=== PATIENT | female | born 1960 | race Caucasian/White ===

== ENCOUNTER 2017-09-21 14:57 | Emergency (ER) | payer OTHER, SELFPAY ==
[2017-09-21 15:24] VITALS: BP 110/80; PULSE 126; RESP 20; TEMP 38.4; O2SAT 94; BMI 25.0
--- NOTE | 2017-09-21 15:25 | HMH.EDUTC ---
[facility] [place] Clinical Impression: Flu-like symptoms Disposition: Home, Self-Care Condition on Discharge: Good Instructions: DI for Influenza -- Adult Additional Instructions: Rest, fluids. Motrin/Tylenol PRN. Prescriptions: Brompheniramine/Pseudoephed/Dm [Bromfed DM Cough Syrup 5mL] 5 - 10 ml PO Q4HP PRN 10 Days #240 syrup PRN Reason: Cough methylPREDNISolone [Medrol] 4 mg PO DAILY 6 Days #21 tab.ds.pk Oseltamivir Phosphate [Tamiflu 75mg Capsule] 75 mg PO BID 5 Days #10 cap Referrals: Omkar Acosta MD [Primary Care Provider] - Time of Disposition: 16:08 Medical Decision Making - Medical Records Medical records reviewed: Yes: I reviewed the patient's medical records. Vital Signs: 09/21/17 15:24 Temperature 101.1 F H Temperature Source Temporal Artery Scan Pulse Rate [Right Brachial] 126 H Respiratory Rate 20 Blood Pressure [Right Arm] 110/80 Blood Pressure Mean [Right Arm] 90 Blood Pressure Source [Right Arm] Automatic Cuff Blood Pressure Position [Right Arm] Sitting 02 Sat by Pulse Oximetry 94 L Oxygen Delivery Method Room Air - Lab Data Lab results reviewed: Yes: I reviewed the patient's lab results. Lab Results 09/21/17 15:22: Influenza Type A Ag Negative, Influenza Type B Ag Negative 09/21/17 15:31: Strep Scn Rapid Clinic Negative Orders (Tests/Meds): ORDERS Category Date Time Status Strep Screen Confirmation Stat Micro 09/21/17 15:31 Received - King Inquiry Pt receiving controlled substance: No [facility] [place] H[place] - General Stated complaint: achey,fever,vomiting Time Seen by Provider: 09/21/17 15:25 HEENT Symptoms (Recalled from RN notes): Yes Resp Symptoms (Recalled from RN notes): Yes Skin Symptoms (Recalled from RN notes): No GI/ Symptoms (Recalled from RN notes): Yes MS Symptoms (Recalled from RN notes): Yes Card Symptoms (Recalled from RN notes): No Other (Recalled from RN notes): No - History of Present Illness Provider Complaint: 2.5 week history of cough, congestion. Now has fever 101.5 since this am, body aches, chills. Vomited this am. Throat is sore. Non productive cough. No diarrhea. Onset (ago): day(s) (1) Location: head Relieving factors: none Exacerbating factors: none Associated symptoms: cough, fever/chills, malaise, nausea/vomiting Treatments prior to arrival: none - Related Data Previous Rx's Medication Instructions Recorded Brompheniramine/Pseudoephed/Dm 5 - 10 ml PO Q4HP PRN 10 Days #240 09/21/17 [Bromfed DM Cough Syrup 5mL] syrup Oseltamivir Phosphate [Tamiflu 75 mg PO BID 5 Days #10 cap 09/21/17 75mg Capsule] methylPREDNISolone [Medrol] 4 mg PO DAILY 6 Days #21 tab.ds.pk 09/21/17 Allergies Allergy/AdvReac Type Severity Reaction Status Date / Time Penicillin Allergy Unknown Uncoded 07/30/17 14:41 [facility] History I have reviewed the patient's past medical history: Yes ROS Obtained: Yes All systems reviewed & no additional complaints - Constitutional Constitutional: Reports body ache, Reports chills, Reports fever(s), Reports weakness - ENT Ears, Nose, Mouth, and Throat: Denies otalgia, Denies nasal congestion, Denies nasal discharge, Reports sore throat - Respiratory Respiratory: Yes cough - Gastrointestinal Gastrointestingal: Reports: vomiting. Denies: diarrhea - Genitourinary Female Genitourinary: Denies difficulty voiding, Denies dysuria, Denies urinary frequency - Musculoskeletal Musculoskeletal: Reports muscle aches - Integumentary/Breasts Skin/Breast: Denies rash Physical Exam - General General appearance: alert, in no apparent distress - Head Head exam: atraumatic, normocephalic, normal inspection - Eye Eye exam: Present: normal appearance, PERRL, EOMI - ENT ENT exam: Present: normal exam, normal oropharynx, mucous membranes moist, TM's normal bilaterally, normal external ear exam - Neck Neck exam: Present: normal inspection, full ROM, trachea midline. Absent: meningismus, lym
--- NOTE | 2017-09-21 15:28 | ED_ITS ---
[facility] [place] Disposition Clinical Impression: Flu-like symptoms Disposition: Home, Self-Care Condition on Discharge: Good Instructions: DI for Influenza -- Adult Additional Instructions: Rest, fluids. Motrin/Tylenol PRN. Prescriptions: Brompheniramine/Pseudoephed/Dm [Bromfed DM Cough Syrup 5mL] 5 - 10 ml PO Q4HP PRN 10 Days #240 syrup PRN Reason: Cough methylPREDNISolone [Medrol] 4 mg PO DAILY 6 Days #21 tab.ds.pk Oseltamivir Phosphate [Tamiflu 75mg Capsule] 75 mg PO BID 5 Days #10 cap Referrals: Omkar Acosta MD [Primary Care Provider] - Time of Disposition: 16:08 Medical Decision Making - Medical Records Medical records reviewed: Yes: I reviewed the patient's medical records. Vital Signs: 09/21/17 15:24 Temperature 101.1 F H Temperature Source Temporal Artery Scan Pulse Rate [Right Brachial] 126 H Respiratory Rate 20 Blood Pressure [Right Arm] 110/80 Blood Pressure Mean [Right Arm] 90 Blood Pressure Source [Right Arm] Automatic Cuff Blood Pressure Position [Right Arm] Sitting 02 Sat by Pulse Oximetry 94 L Oxygen Delivery Method Room Air - Lab Data Lab results reviewed: Yes: I reviewed the patient's lab results. Lab Results 09/21/17 15:22: Influenza Type A Ag Negative, Influenza Type B Ag Negative 09/21/17 15:31: Strep Scn Rapid Clinic Negative Orders (Tests/Meds): ORDERS Category Date Time Status Strep Screen Confirmation Stat Micro 09/21/17 15:31 Received - King Inquiry Pt receiving controlled substance: No [facility] [place] HPI - General Stated complaint: achey,fever,vomiting Time Seen by Provider: 09/21/17 15:25 HEENT Symptoms (Recalled from RN notes): Yes Resp Symptoms (Recalled from RN notes): Yes Skin Symptoms (Recalled from RN notes): No GI/ Symptoms (Recalled from RN notes): Yes MS Symptoms (Recalled from RN notes): Yes Card Symptoms (Recalled from RN notes): No Other (Recalled from RN notes): No - History of Present Illness Provider Complaint: 2.5 week history of cough, congestion. Now has fever 101.5 since this am, body aches, chills. Vomited this am. Throat is sore. Non productive cough. No diarrhea. Onset (ago): day(s) (1) Location: head Relieving factors: none Exacerbating factors: none Associated symptoms: cough, fever/chills, malaise, nausea/vomiting Treatments prior to arrival: none - Related Data Previous Rx's Medication Instructions Recorded Brompheniramine/Pseudoephed/Dm 5 - 10 ml PO Q4HP PRN 10 Days #240 09/21/17 [Bromfed DM Cough Syrup 5mL] syrup Oseltamivir Phosphate [Tamiflu 75 mg PO BID 5 Days #10 cap 09/21/17 75mg Capsule] methylPREDNISolone [Medrol] 4 mg PO DAILY 6 Days #21 tab.ds.pk 09/21/17 Allergies Allergy/AdvReac Type Severity Reaction Status Date / Time Penicillin Allergy Unknown Uncoded 07/30/17 14:41 [facility] History I have reviewed the patient's past medical history: Yes ROS Obtained: Yes All systems reviewed & no additional complaints - Constitutional Constitutional: Reports body ache, Reports chills, Reports fever(s), Reports weakness - ENT Ears, Nose, Mouth, and Throat: Denies otalgia, Denies nasal congestion, Denies nasal discharge, Reports sore throat - Respiratory Respiratory: Yes cough - Gastrointestinal Gastrointestingal: Reports: vomiting. Denies: diarr
[2017-09-21 16:00] LABS: UTC Strep Screen (Rapid) Negative (Negative)
[2017-09-21 16:01] LABS: UTC Influenza A Antigen Negative (Negative); UTC Influenza B Antigen Negative (Negative)
[2017-09-21 16:13] VITALS: BP 110/80; PULSE 126; RESP 20; TEMP 38.4; O2SAT 94
== END 2017-09-21 16:14 | disposition home or self-care (01) ==
PROVIDERS: Emergency Provider Physician Assistant; Family Provider Family Medicine; PCP Family Medicine
DX: J10.1 Influenza due to other identified influenza virus with other respiratory manifestations (principal)
CPT/HCPCS: 87804; 87880; 99202

== ENCOUNTER → 2017-09-24 14:13 | Outpatient (CLI) | payer OTHER, SELFPAY ==
--- NOTE | 2017-09-24 14:16 | XR_ITS ---
XR chest 2V HISTORY: ITS.REASON: BRONCHITIS ORDERING PHYSICIAN: Maite Hill PATIENT AGE: 57 years COMPARISON: None available FINDINGS: The cardiomediastinal silhouette and pulmonary vascularity are within normal limits. Consolidation is present in the superior segment of the right lower lobe medially consistent with pneumonia. There is some mild prominence of the right hilum which may be related to reactive lymph nodes. Follow-up suggested to confirm stability. 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 No acute bony abnormalities. 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
== END ==
PROVIDERS: PCP Family Medicine; Visit Provider Nurse Practitioner Family
DX: J40 Bronchitis, not specified as acute or chronic (principal)
CPT/HCPCS: 71046

== ENCOUNTER → 2017-10-04 13:59 | Outpatient (CLI) | payer OTHER, SELFPAY ==
--- NOTE | 2017-10-04 14:03 | XR_ITS ---
XR chest 2V HISTORY: ITS.REASON: INFLUENZA,PNEUMONIA RLL ORDERING PHYSICIAN: VINCENT Paredes PATIENT AGE: 57 years COMPARISON: 09/24/2017 FINDINGS: The cardiomediastinal silhouette and pulmonary vascularity are within normal limits. Right-sided pneumonia has shown some improvement. There is some mild residual pneumonia in the right perihilar region. The left lung is clear. There is evidence of old granulomatous disease. IMPRESSION: Persistent but improving right lower lobe pneumonia
== END ==
PROVIDERS: PCP Family Medicine; Visit Provider Physician Assistant
DX: J11.1 Influenza due to unidentified influenza virus with other respiratory manifestations (principal); J18.1 Lobar pneumonia, unspecified organism
CPT/HCPCS: 71046

== ENCOUNTER 2020-01-31 17:21 | Emergency (ER) | payer OTHER, SELFPAY ==
--- NOTE | 2020-01-31 17:46 | HMH.EDUTC ---
[facility] [place] Disposition Clinical Impression: Right lower quadrant abdominal pain, History of IBS Disposition: Home, Self-Care Condition on Discharge: Good Instructions: Acute Abdominal Pain, DI for Irritable Bowel Syndrome Additional Instructions: Drink plenty of fluids. Take tylenol or ibuprofen for pain or fever. Take the medications as directed. If your symptoms get any worse, please return to the ER jayy. Follow up with your regular doctor. GO TO THE ER FOR ANY WORSENING SYMPTOMS Prescriptions: Dicyclomine HCl [Bentyl 10mg capsule] 10 mg PO TIDP PRN #30 cap PRN Reason: Moderate Pain Transmission Status: Received by [facility] Ciprofloxacin HCl [Cipro 250mg Tab] 250 mg PO BID 7 Days #14 tab Transmission Status: Received by [facility] Referrals: Omkar Acosta MD [Primary Care Provider] - Time of Disposition: 18:11 Medical Decision Making - Medical Records Medical records reviewed: No: I reviewed the patient's medical records. - King Inquiry Pt receiving controlled substance: No Vital Signs: 01/31/20 17:51 01/31/20 18:02 Temperature 98.6 F 98.6 F Temperature Source Oral Pulse Rate 108 H Pulse Rate [Right Brachial] 108 H Respiratory Rate 20 20 Blood Pressure 142/98 H Blood Pressure [Right Arm] 142/98 H Blood Pressure Mean [Right Arm] 112 Blood Pressure Source [Right Arm] Automatic Cuff Blood Pressure Position [Right Arm] Sitting 02 Sat by Pulse Oximetry 98 Oxygen Delivery Method Room Air - Lab Data Lab results reviewed: Yes: I reviewed the patient's lab results. Lab Results 01/31/20 18:00: Urine Color Yellow, Urine Appearance Clear, Urine pH 7.0, Ur Specific [place] 1.010, Urine Protein Negative, Urine Glucose (UA) Negative, Urine Ketones Negative, Urine Blood Negative, Urine Nitrate Negative, Urine Bilirubin Negative, Urine Urobilinogen 0.2, Ur Leukocyte Esterase Negative Medical Decision Narrative: she refused to go to the er for further evaluation of her abdominal pain. [facility] [place] HPI - General Stated complaint: Right side pain Time Seen by Provider: 01/31/20 17:47 - History of Present Illness Provider Complaint: She c/o right lower quadrant pain that started yesterday. She does not have an appendix (removed in 1996) or a right ovary (removed also). She has had normal bowel movements yesterday and today. She denies any blood in her stool. She does have a history of IBS, but she has not had these kind of symptoms in over 10 years. - Related Data Previous Rx's Medication Instructions Recorded Ciprofloxacin HCl [Cipro 250mg 250 mg PO BID 7 Days #14 tab 01/31/20 Tab] Dicyclomine HCl [Bentyl 10mg 10 mg PO TIDP PRN #30 cap 01/31/20 capsule] Allergies Allergy/AdvReac Type Severity Reaction Status Date / Time Penicillins Allergy Verified 01/31/20 17:56 [facility] History - Hepatitis A Screen Attestation statement:: This patient has been screened for Hepatitis A risk factors. I have reviewed the patient's past medical history: Yes Medical History: Denies:: Cancer, Diabetes Mellitus Type 1, Diabetes Mellitus Type 2, MRSA Laterality Cases: Bilateral: Tonsillectomy Amputation: No Fractures: No - Social History Smoking Status: Current every day smoker Tobacco Type: cigarettes Alcohol Intake: never ROS Obtained: Yes All systems reviewed & no additional complaints - Constitutional Constitutional: Denies chills, Denies fever(s) - Gastrointestinal Gastrointestingal: Reports: as per HPI - Genitourinary Female Genitourinary: Reports dysuria - Musculoskeletal Musculoskeletal: Denies back pain - Integumentary/Breasts Skin/Breast: Denies redness, Denies new lesions, Denies rash, Denies wounds Physical Exam - General General appearance: alert, in no apparent distress - Head Head exam: atraumatic, normocephalic, normal inspection - Eye Eye exam: Present: normal appearance, PERRL, EOMI -
[2020-01-31 17:51] VITALS: BP 142/98; PULSE 108; RESP 20; TEMP 37; O2SAT 98; BMI 23.1
[2020-01-31 18:02] VITALS: BP 142/98; PULSE 108; RESP 20; TEMP 37; O2SAT 98
[2020-01-31 19:13] LABS: Apearance,Urine Clear (Clear); Bilirubin,Urine Negative (Negative); Blood, Urine Negative (Negative); Color,Urine Yellow (Yellow); Glucose,Urine (UA) Negative (Negative); Ketones,Urine Negative (Negative); Protein,Urine Negative (Negative); UTC Leukocyte Esterase,Urine Negative (Negative); UTC Nitrate,Urine Negative (Negative); Urobilinogen,Urine 0.2 EU/dl (0.2)
== END 2020-01-31 18:13 | disposition home or self-care (01) ==
PROVIDERS: Emergency Provider Nurse Practitioner Family; PCP Family Medicine
DX: R10.31 Right lower quadrant pain (principal); K58.9 Irritable bowel syndrome, unspecified; F17.210 Nicotine dependence, cigarettes, uncomplicated; Z88.0 Allergy status to penicillin; Z90.09 Acquired absence of other part of head and neck
CPT/HCPCS: 81003; 99201

== ENCOUNTER → 2020-02-19 08:40 | Outpatient (CLI) | payer OTHER, SELFPAY ==
--- NOTE | 2020-02-19 08:45 | CT_ITS ---
PROCEDURE: CT ABDOMEN PELVIS WO CON CLINICAL INDICATION: R LOWER QUAD ABD PAIN Right lower quadrant pain, history of colon cancer COMPARISON: No exams were available for comparison TECHNIQUE: Axial images obtained with sagittal and coronal reformats. All CT scans at the facility use one or more dose reduction, viz: automated exposure control, ma/kV adjustment per patient size (including targeted exams where dose is matched to indication, i.e. head), or iterative reconstruction technique. Patient refused IV contrast. Oral contrast was utilized. FINDINGS: LOWER THORAX: There is a moderate-sized hiatal hernia. Coronary artery calcifications are noted. There is a 4 mm noncalcified nodule in the lingula along with some mild atelectatic or fibrotic changes in the lingula and right middle lobe and right lower lobe. There is some minimal pleural calcification in the lower hemithorax on the left. ABDOMEN & PELVIS: There is a 12 mm hypodense lesion in the left hepatic lobe. The spleen, adrenal glands, pancreas, and kidneys have an unremarkable appearance. No renal or ureteral calculi. No hydronephrosis. No intestinal obstruction or free air. No evidence of appendicitis. There is colonic diverticulosis with no evidence of diverticulitis. There are post hysterectomy changes. No acute bony anomalies. IMPRESSION: 1. 12 mm hypodensity of the left lobe of the liver which may be due to a cyst and could be confirmed with ultrasound 2. Hiatal hernia. 3. Colonic diverticulosis without diverticulitis. 4. Minimal pleural calcification in the left lung base with bilateral lower lobe calcified nodules atelectatic changes and noncalcified 4 mm nodule in the lingula. Dictated by: Hakan Breen MD 02/20/2020 10:08 Electronically signed by Hakan Breen MD in [place] 02/20/2020 10:08
== END ==
PROVIDERS: PCP Family Medicine; Visit Provider Family Medicine
DX: R10.31 Right lower quadrant pain (principal)
CPT/HCPCS: 74176

== ENCOUNTER → 2020-03-07 07:42 | Outpatient (CLI) | payer OTHER, SELFPAY ==
--- NOTE | 2020-03-07 | US_ITS ---
PROCEDURE: US ABDOMEN LIMITED CLINICAL INDICATION: CYSTIC DISEASE OF LIVER, 12MM CYST OF LIVER COMPARISON: CT ABDOMEN PELVIS WO CON from 02/19/2020 FINDINGS: PANCREAS: Unremarkable. No obvious mass or abnormal fluid collection. No ductal dilatation LIVER: There is a 12 mm cyst in the left hepatic lobe RIGHT KIDNEY: Unremarkable. Normal size and echogenicity. No hydronephrosis GALLBLADDER: Small gallbladder polyp is noted posteriorly at 3 mm. No shadowing. No shadowing mobile stones evident. Common bile duct is normal at 4 mm. No gallbladder wall thickening or pericholecystic fluid. IMPRESSION: 12 mm cyst left hepatic lobe Small gallbladder polyp Dictated by: Hakan Breen MD 03/08/2020 07:50 Electronically signed by Hakan Breen MD in [place] 03/08/2020 07:50
== END ==
PROVIDERS: PCP Family Medicine; Visit Provider Family Medicine
DX: Q44.6 Cystic disease of liver (principal)
CPT/HCPCS: 76705

== ENCOUNTER → 2021-05-27 07:57 | Outpatient (CLI) | payer OTHER, SELFPAY ==
[2021-05-27 08:30] LABS: Chloride 106 mmol/L (98-107); Potassium 4.1 mmoL/L (3.5-5.1); Sodium 141 mmol/L (136-145)
[2021-05-27 08:33] LABS: Alanine Aminotransferase 14 U/L (12-78); Albumin Level 3.9 g/dl (3.5-5.0); Albumin/Globulin Ratio 1.3 (1.1-1.8); Alkaline Phosphatase 85 U/L (38-126); Anion Gap 12.1 mEq/L (5-15); Aspartate Amino Transferase 13 U/L (14-36); Bilirubin,Total 0.5 mg/dl (0.2-1.3); Blood Urea Nitrogen 8 mg/dl (7-17); Calcium 9.2 mg/dl (8.4-10.2); Carbon Dioxide 27 mmol/L (22.0-30.0); Chol/HDL Ratio 4.6 (1-3.5); Cholesterol 195 mg/dl (140-200); Estimated Glomerular Filt Rate 86 ml/min (>60); GFR (African American) 104 ML/MIN (>60); Glucose 115 mg/dl (74-100); HDL Cholesterol 42 mg/dl (40-60); Total Protein,Serum 6.9 g/dl (6.3-8.2); Triglycerides 83 mg/dl (30-150); VLDL Cholesterol 17 mg/dL (0-40)
[2021-05-27 08:44] LABS: Direct LDL Cholesterol 114.03 mg/dL (100-129)
[2021-05-27 09:04] LABS: Thyroid Stimulating Hormone 3.15 uIU/mL (0.465-4.68)
== END ==
PROVIDERS: Visit Provider Physician Assistant
DX: R30.0 Dysuria (principal); Z13.220 Encounter for screening for lipoid disorders; Z13.29 Encounter for screening for other suspected endocrine disorder
CPT/HCPCS: 36415; 80053; 80061; 84443

== ENCOUNTER → 2021-06-06 09:39 | Outpatient (CLI) | payer OTHER, SELFPAY ==
--- NOTE | 2021-06-06 09:43 | MM_ITS ---
PROCEDURE: MM DIG SCREENING MAMM BI W/CAD Digital Breast Tomosynthesis Included CLINICAL INDICATION: SCREENING There is no personal or family history of breast cancer. COMPARISON: MG DMSB DIG MAMM-SCREEN JP from 02/27/2013 MG DMSB DIG MAMM-SCREEN JP from 03/05/2014 MG DMSB DIG MAMM-SCREEN JP from 03/14/2015 TECHNIQUE: Standard CC and MLO images and 3D Tomosynthesis was obtained. R2 CAD reviewed. FINDINGS: Prominent diffuse fibroglandular densities are seen throughout both breast and the findings are bilateral and symmetrical. There is no new or suspicious lesion in either breast and no suspicious microcalcifications. IMPRESSION: Moderate diffuse breast density with no suspicious lesions seen BI-RAD Category: 1 Negative FOLLOW-UP: 1YR 1 Year Follow-up (A letter has been sent to the patient regarding results of the study.) Dictated by: Dr. Aubrey Yanez MD 06/09/2021 14:39 Dr. Aubrey Yanez MD in [place] 06/09/2021 14:39
== END ==
PROVIDERS: PCP Family Medicine; Visit Provider Physician Assistant
DX: Z12.31 Encounter for screening mammogram for malignant neoplasm of breast (principal)
CPT/HCPCS: 77063; 77067

== ENCOUNTER 2021-12-04 17:15 | Emergency (ER) | payer OTHER, SELFPAY ==
[2021-12-04 17:40] LABS: Apearance,Urine Clear (Clear); Color,Urine Dark Yellow (Yellow)
[2021-12-04 17:41] LABS: Bilirubin,Urine Negative (Negative); Blood, Urine Trace (Negative); Glucose,Urine (UA) Negative (Negative); Ketones,Urine Negative (Negative); Protein,Urine Negative (Negative); Specific Gravity, Urine 1.015 (1.005-1.030); UTC Leukocyte Esterase,Urine 2+ (Negative); UTC Nitrate,Urine Negative (Negative); Urobilinogen,Urine 0.2 EU/dl (0.2)
[2021-12-04 18:16] VITALS: BP 144/87; PULSE 94; RESP 18; TEMP 36.8; O2SAT 98; BMI 26.9
--- NOTE | 2021-12-04 18:52 | HMH.EDUTC ---
[facility] [place] Clinical Impression: Urinary tract infection Qualifiers: Urinary tract infection type: site unspecified Hematuria presence: with hematuria Qualified Code(s): N39.0 - Urinary tract infection, site not specified; R31.9 - Hematuria, unspecified Disposition: Home, Self-Care Condition on Discharge: Good Instructions: DI for Urinary Tract Infection (UTI), Nitrofurantoin Additional Instructions: *Increase fluids. Water not Soda or Tea *Start antibiotic immediately and be sure to take as ordered for the FULL length of time although you should start to see improvement over the next 48 hours *Be SURE to follow up anytime for new or worsening symptoms with your family doctor. AND in 48 hours for urine culture results with your family doctor, if you do not have a doctor then you may call back to the [facility] for urine culture results and further treatment. We do recommend that you choose and establish care with a Primary Care Physician. AND follow up with them in 10-14 days to repeat UA to ensure infection is resolved and blood no longer present *Be sure to let your PCP know that we sent urine cultures from the [facility] so they can follow up to ensure that you area the on the correct antibiotic Call your doctor office and make appointment for 48 hours (2 days from today) to follow up and get the results of your urine culture and further treatment Prescriptions: Nitrofurantoin Monohyd/M-Cryst [Macrobid 100 mg Capsule] 100 mg PO BID 7 Days #14 cap Transmission Status: Pending to [facility] Referrals: Omkar Acosta MD [Primary Care Provider] - As needed Time of Disposition: 19:02 Medical Decision Making - King Inquiry Pt receiving controlled substance: No King was queried for this patient: No Vital Signs: 12/04/21 18:16 Temperature 98.3 F Temperature Source Oral Pulse Rate [Right Radial] 94 H Respiratory Rate 18 Blood Pressure [Right Arm] 144/87 H Blood Pressure Mean [Right Arm] 106 Blood Pressure Source [Right Arm] Automatic Cuff Blood Pressure Position [Right Arm] Sitting 02 Sat by Pulse Oximetry 98 Oxygen Delivery Method Room Air - Lab Data Lab Results 12/04/21 17:33: Urine Color Dark yellow, Urine Appearance Clear, Urine pH 6.0, Ur Specific [place] 1.015, Urine Protein Negative, Urine Glucose (UA) Negative, Urine Ketones Negative, Urine Blood Trace, Urine Nitrate Negative, Urine Bilirubin Negative, Urine Urobilinogen 0.2, Ur Leukocyte Esterase 2+ A Orders (Tests/Meds): ORDERS Category Date Time Status Urine Culture Stat Micro 12/04/21 17:25 Received [facility] [place] HPI - General Stated complaint: painful urinating Time Seen by Provider: 12/04/21 18:52 Mode of Arrival: Ambulatory Source of Information: Patient Limitations: No Limitations Description of Symptoms (Recalled from Triage Doc. by RN): C/O frequent urination and bladder spasms since yesterday HEENT Symptoms (Recalled from RN notes): No Resp Symptoms (Recalled from RN notes): No Skin Symptoms (Recalled from RN notes): No MS Symptoms (Recalled from RN notes): No Functional Status (Recalled from RN notes): n/a - History of Present Illness Provider Complaint: Patient states that she feels like she may have a UTI States that she has been having feeling of urgency and frequency since yesterday and feels like she has burning and bladder spasms after urinating - Related Data Previous Rx's Medication Instructions Recorded Ciprofloxacin HCl [Cipro 250mg 250 mg PO BID 7 Days #14 tab 01/31/20 Tab] Dicyclomine HCl [Bentyl 10mg 10 mg PO TIDP PRN #30 cap 01/31/20 capsule] Nitrofurantoin Monohyd/M-Cryst 100 mg PO BID 7 Days #14 cap 12/04/21 [Macrobid 100 mg Capsule] Allergies Allergy/AdvReac Type Severity Reaction Status Date / Time Penicillins Allergy Verified 01/31/20 17:56 - Worker's Comp Is this a Worker's Comp case?: No [facility] History - Hepatitis A Screen Drug use history?: No High risk
[2021-12-04 19:10] VITALS: BP 144/89; PULSE 69; RESP 19; TEMP 37
== END 2021-12-04 19:10 | disposition home or self-care (01) ==
PROVIDERS: Emergency Provider Nurse Practitioner; PCP Family Medicine
DX: N30.00 Acute cystitis without hematuria (principal); F17.210 Nicotine dependence, cigarettes, uncomplicated
CPT/HCPCS: 81003; 87086; 87088; 87186; 99212; G0463

== ENCOUNTER 2022-03-31 09:47 | Emergency (ER) | payer OTHER, SELFPAY ==
[2022-03-31 10:25] VITALS: BP 129/82; PULSE 94; RESP 19; TEMP 37.1; O2SAT 97; BMI 25.8
--- NOTE | 2022-03-31 10:39 | HMH.EDUTC ---
[facility] [place] Clinical Impression: Bronchitis Disposition: Home, Self-Care Condition on Discharge: Good Instructions: DI for Acute Bronchitis Additional Instructions: Start antibiotic today. Be sure to complete entire prescription even if feeling better Tylenol and ibuprofen as needed for pain or fever Humidifier/vaporizer/hot steamy shower Follow-up with primary care tomorrow. Follow-up immediately in the ER of the [facility] for new or worsening symptoms or no noticeable improvement over the next 48-72 hours. Stop smoking Inhaler every 4-6 hours as needed. Should help open airways improved cough, wheezing, shortness of breath Imelda Mcfadden will not cause drowsiness to use at bedtime to help stop cough so that she can get some sleep Start steroids today. Helps with inflammation therefore coughing and wheezing. Follow directions on package. Prescriptions: Azithromycin [Zithromax 250mg tab] 250 mg PO DIRECTED #6 tab Transmission Status: Pending to [facility] Referrals: Omkar Acosta MD [Primary Care Provider] - Time of Disposition: 10:50 Medical Decision Making - King Inquiry Pt receiving controlled substance: No Vital Signs: 03/31/22 10:25 Temperature 98.8 F Temperature Source Oral Pulse Rate [Right Brachial] 94 H Respiratory Rate 19 Blood Pressure [Right Arm] 129/82 Blood Pressure Mean [Right Arm] 97 Blood Pressure Source [Right Arm] Automatic Cuff Blood Pressure Position [Right Arm] Sitting 02 Sat by Pulse Oximetry 97 Oxygen Delivery Method Room Air Orders (Tests/Meds): ORDERS Category Date Time Status Covid-19 Nasal PCR ([facility]) Routine Lab 03/31/22 10:30 Received [facility] [place] HPI - General Chief complaint: Urgent [facility] Stated complaint: fever, body aches Time Seen by Provider: 03/31/22 10:39 Mode of Arrival: Ambulatory Source of Information: Patient Limitations: No Limitations Description of Symptoms (Recalled from Triage Doc. by RN): PATIENT C/O FEVER AND BODY ACHES SINCE YESTERDAY HEENT Symptoms (Recalled from RN notes): No Resp Symptoms (Recalled from RN notes): No Skin Symptoms (Recalled from RN notes): No MS Symptoms (Recalled from RN notes): No Functional Status (Recalled from RN notes): WNL - History of Present Illness Provider Complaint: 61 yr old female presents for body aches,fever,nasal congestion and coughing up dark yellow sputum. - Related Data Previous Rx's Medication Instructions Recorded Ciprofloxacin HCl [Cipro 250mg 250 mg PO BID 7 Days #14 tab 01/31/20 Tab] Dicyclomine HCl [Bentyl 10mg 10 mg PO TIDP PRN #30 cap 01/31/20 capsule] Nitrofurantoin Monohyd/M-Cryst 100 mg PO BID 7 Days #14 cap 12/04/21 [Macrobid 100 mg Capsule] Azithromycin [Zithromax 250mg 250 mg PO DIRECTED #6 tab 03/31/22 tab] Allergies Allergy/AdvReac Type Severity Reaction Status Date / Time Penicillins Allergy Verified 01/31/20 17:56 Sulfa (Sulfonamide Allergy Verified 03/31/22 10:34 Antibiotics) - Worker's Comp Is this a Worker's Comp case?: No [facility] History - Hepatitis A Screen Attestation statement:: This patient has been screened for Hepatitis A risk factors. I have reviewed the patient's past medical history: Yes Medical History: Denies:: Cancer, Diabetes Mellitus Type 1, Diabetes Mellitus Type 2, MRSA Laterality Cases: Bilateral: Tonsillectomy Amputation: No Fractures: No - Social History Smoking Status: Current every day smoker Tobacco Type: cigarettes # Packs/Day (cigarettes): 1 Alcohol Intake: never Occupational Status: other ROS Obtained: Yes Systems reviewed as appropriate & no additional complaints - Constitutional Constitutional: Reports system reviewed and no additional complaints, except as docu, Reports body ache, Reports fever(s) - Eyes Eyes: Reports system reviewed and no additional complaints, except as docu, Denies change in vision - ENT Ears, Nose, Mouth, and Throat: Reports s
[2022-03-31 10:55] VITALS: BP 129/82; PULSE 94; RESP 19; TEMP 37.1; O2SAT 97
== END 2022-03-31 10:58 | disposition home or self-care (01) ==
PROVIDERS: Emergency Provider Nurse Practitioner Family; PCP Family Medicine
DX: U07.1 COVID-19 (principal); J40 Bronchitis, not specified as acute or chronic; R50.9 Fever, unspecified
CPT/HCPCS: 99212; C9803; G0463; U0003; U0005

== ENCOUNTER → 2023-04-12 10:13 | Outpatient (CLI) | payer MEDICAID, SELFPAY ==
--- NOTE | 2023-04-12 10:23 | MM_ITS ---
PROCEDURE INFORMATION: Exam: MG Bilateral Screening 3D Mammography Exam date and time: 04/12/2023 10:19 AM Age: 62 years old Clinical indication: Screening examination; No personal or family history of breast cancer TECHNIQUE: Imaging protocol: Bilateral Screening tomosynthesis and 2D mammography including computer-aided detection (CAD) when performed. COMPARISON: 1. MG MM DIG SCREENING MAMM BI W/CAD 06/06/2021 9:42 AM 2. MG DMSB DIG MAMM-SCREEN JP 03/14/2015 10:52 AM FINDINGS: MAMMOGRAPHY: Breast composition: There are scattered areas of fibroglandular density. Mass: None. Architectural distortion: None. Calcifications: No suspicious calcifications. Asymmetric density: None. Skin thickening: None. Axillary adenopathy: None. IMPRESSION: No mammographic evidence of malignancy. Annual screening is recommended unless otherwise clinically indicated. ASSESSMENT: BI-RADS Category 1: Negative
== END ==
PROVIDERS: PCP Pediatrics; Visit Provider Pediatrics
DX: Z12.31 Encounter for screening mammogram for malignant neoplasm of breast (principal)
CPT/HCPCS: 77063; 77067

== ENCOUNTER 2023-04-22 20:08 | Emergency (ER) | payer MEDICAID, SELFPAY ==
[2023-04-22 20:19] LABS: Microscopic, Urine URINE MICROSCOPIC (MICROSCOPIC)
[2023-04-22 20:28] LABS: Appearance,Urine CLEAR (Clear); Bilirubin,Urine Negative (Negative); Blood, Urine 1+ (Negative); Color,Urine YELLOW (Yellow); Glucose,Urine (UA) Negative (Negative); Ketones,Urine Negative (Negative); Leukocyte Esterase,Urine 2+ (Negative); Nitrate,Urine Negative (Negative); Protein,Urine Negative (Negative); Specific Gravity, Urine 1.015 (1.005-1.030); Urobilinogen,Urine 0.2 EU/dl (0.2)
[2023-04-22 20:42] VITALS: BP 145/93; PULSE 98; RESP 16; TEMP 36.6; O2SAT 98; BMI 24.7
[2023-04-22 21:06] LABS: RBC,Urine Occasional #/hpf (0-3)
--- NOTE | 2023-04-22 21:09 | HMH.EDGENADL ---
Discharge Plan Disposition Patient Disposition: Home, Self-Care Prescriptions Prescriptions: New nitrofurantoin macrocrystal 100 mg capsule 100 mg PO BID 5 Days Qty: 10 0RF Rx Instructions: must administer with a meal/food No Action ciprofloxacin HCl 250 MG tablet 250 mg PO BID 7 Days Qty: 14 0RF dicyclomine 10 MG capsule 10 mg PO TIDP PRN (Reason: Moderate Pain) Qty: 30 0RF nitrofurantoin monohyd/m-cryst 100 MG capsule 100 mg PO BID 7 Days Qty: 14 0RF azithromycin 250 MG tablet 250 mg PO DIRECTED Qty: 6 0RF Rx Instructions: Take two (2) tablets on day #1, then one (1) tablet day #2 thru #5 Referrals Follow up/Referrals: Lester Strauss [Primary Care Provider] - See instructions Activity Restrictions/Add. Instructions Additional Instructions/Restrictions: Call your family doctor to establish care for this visit to the emergency department and schedule follow-up within 48 hours to ensure improvement. If you have any worsening of your condition or any other concerning signs or symptoms, return to the emergency department or your primary care doctor for further evaluation. Clinical Impressions Clinical Impression: Urinary tract infection Instructions Patient Instructions: DI for Urinary Tract Infection (UTI), DI for Urinary Tract Infection in Children Discharge ED Provider: Raman Simmons General Adult HPI General Chief complaint: Urogenital-Female Stated complaint: suspected UTI Time Seen by Provider: 04/22/23 20:40 Mode of Arrival: Ambulatory Source of Information: Patient Limitations: No Limitations Description of Symptoms (Recalled from ER Triage Doc. by RN): pt states she woke up with morning with urinary frequency, occasional bladder spasms, and a burning pain in her pelvic area. pt states she thinks she has a UTI and she usually takes macrobid. History of Present Illness HPI narrative: 62-year-old female with history of numerous UTIs presenting with dysuria and frequency. Patient states this started today, tried to push fluids and stay hydrated, but symptoms persisted. Denies hematuria, but has dysuria, frequency, urgency, and intermittently having bladder spasms. Related Data Previous Rx's Medication Instructions Recorded ciprofloxacin HCl 250 mg tablet 250 mg PO BID 7 days #14 tabs 01/31/20 dicyclomine 10 mg capsule 10 mg PO TIDP PRN Moderate Pain 01/31/20 #30 caps nitrofurantoin 100 mg PO BID 7 days #14 caps 12/04/21 monohydrate/macrocrystals 100 mg capsule azithromycin 250 mg tablet 250 mg PO DIRECTED #6 tabs 03/31/22 nitrofurantoin macrocrystal 100 mg 100 mg PO BID 5 days #10 caps 04/22/23 capsule Allergies Allergy/AdvReac Type Severity Reaction Status Date / Time Penicillins Allergy Verified 04/22/23 20:56 Sulfa (Sulfonamide Allergy Verified 04/22/23 20:56 Antibiotics) [facility] Disclaimer: The information contained in this section may have been updated after the patient was seen, as this information can be updated by other users. Social History Smoking Status: Light tobacco smoker tobacco type: cigarettes packs per day: 1 alcohol intake: never current occupational status: other Travel in the last 8 weeks: None ROS Obtained: Yes All systems reviewed & no additional complaints except as documented Physical Exam General General appearance: alert, in no apparent distress and other ( ) Head Head exam: atraumatic and normocephalic Eye Eye exam: Present normal appearance, PERRL and EOMI ENT ENT exam: Present mucous membranes moist Neck Neck exam: Present normal inspection, full ROM and trachea midline Respiratory Respiratory exam: Absent respiratory distress, wheezes, stridor, accessory muscle use or prolonged expiratory phase Cardiovascular Cardiovascular exam: Present regular rate and normal rhythm Abdominal Exam Abdominal exam: Present soft; Absent distention, tenderness, guarding, rebound, rigidity or nor
[2023-04-22 21:22] VITALS: BP 145/93; PULSE 98; RESP 16; TEMP 36.6; O2SAT 97
--- NOTE | 2023-04-29 13:38 | PC.NURSE ---
reviewed pt positive urine culture. pt currently on appropriate medication. no action needed
== END 2023-04-22 21:25 | disposition home or self-care (01) ==
PROVIDERS: Emergency Provider Emergency Medicine; PCP Pediatrics
DX: N39.0 Urinary tract infection, site not specified (principal); F17.210 Nicotine dependence, cigarettes, uncomplicated
CPT/HCPCS: 81001; 87086; 87088; 87186; 99283

== ENCOUNTER 2023-09-04 11:00 | Outpatient (RCR) | payer MEDICAID, SELFPAY | END 2023-09-04 12:00 | disposition home or self-care (01) | LOC: PT 11:00 | PROVIDERS: PCP Pediatrics; Visit Provider Pediatrics | DX: M54.9 Dorsalgia, unspecified (principal) | CPT/HCPCS: 97010; 97014; 97110; 97140; 97163; 97164; G0283 ==

== ENCOUNTER 2024-04-20 08:25 | Outpatient (CLI) | payer MEDICAID, SELFPAY ==
--- NOTE | 2024-04-20 08:30 | MM_ITS ---
PROCEDURE INFORMATION: Exam: MG Bilateral Screening 3D Mammography Exam date and time: 04/20/2024 8:15 AM Age: 63 years old Clinical indication: Screening mammogram TECHNIQUE: Imaging protocol: Bilateral Screening tomosynthesis and 2D mammography including computer-aided detection (CAD) when performed. COMPARISON: 1. MG MM DIG SCREENING MAMM BI W/CAD 04/12/2023 10:19 AM 2. MG MM DIG SCREENING MAMM BI W/CAD 06/06/2021 9:42 AM 3. MG DMSB DIG MAMM-SCREEN JP 03/14/2015 10:52 AM 4. MG DMSB DIG MAMM-SCREEN JP 03/05/2014 10:02 AM FINDINGS: MAMMOGRAPHY: Breast composition: There are scattered areas of fibroglandular density. Mass: None. Architectural distortion: No new or suspicious architectural distortion. Calcifications: No new or suspicious calcifications are present Asymmetric density: No new or suspicious asymmetric density is present Skin thickening: None. Axillary adenopathy: None. IMPRESSION: No mammographic evidence of malignancy. Recommend annual screening mammography unless otherwise clinically indicated. ASSESSMENT: BI-RADS category 1: Negative.
== END 2024-04-20 23:59 | disposition home or self-care (01) ==
LOC: RAD 08:26
PROVIDERS: PCP Pediatrics; Visit Provider Pediatrics
DX: Z12.31 Encounter for screening mammogram for malignant neoplasm of breast (principal)
CPT/HCPCS: 77063; 77067

== ENCOUNTER 2024-06-07 12:01 | Emergency (ER) | payer MEDICAID, SELFPAY ==
[2024-06-07 12:10] VITALS: BP 141/91; PULSE 91; RESP 18; TEMP 36.9; O2SAT 98; BMI 24.0
[2024-06-07 12:31] LABS: Microscopic, Urine URINE MICROSCOPIC (MICROSCOPIC)
--- NOTE | 2024-06-07 12:33 | EXP.UTC ---
Discharge Plan Disposition Patient Disposition: Home, Self-Care Condition: Good Prescriptions Prescriptions: New nitrofurantoin monohyd/m-cryst [Macrobid] 100 mg capsule 100 mg PO Q12H 7 Days Qty: 14 0RF Rx Instructions: must administer with a meal/food No Action cetirizine 10 mg tablet 10 mg PO DAILY Patient Comments: TAKE ONE TABLET BY MOUTH EVERY DAY montelukast 10 mg tablet 10 mg PO DAILY Patient Comments: TAKE ONE TABLET BY MOUTH EVERY NIGHT fluticasone propionate 50 mcg/actuation spray,suspension 2 spray INTRANASAL DAILY Patient Comments: INSTILL 2 SPRAYS IN EACH NOSTRIL EVERY DAY DIRECTED Referrals Follow up/Referrals: Lester Strauss [Primary Care Provider] - See instructions Activity Restrictions/Add. Instructions Additional Instructions/Restrictions: *Increase fluids. Water not Soda or Tea *Start antibiotic immediately and be sure to take as ordered for the FULL length of time although you should start to see improvement over the next 48 hours *Pyridium as needed Remember this medication will turn your urine . This is normal but it will stain what ever it gets on *You should not use Pyridium for more than 48 hours. If so , follow up with your primary physician to review urine culture and ensure that antibiotic is adequate for infection *Be SURE to follow up anytime for new or worsening symptoms with your family doctor. AND in 48 hours for urine culture results with your family doctor, if you do not have a doctor then you may call back to the [facility] for urine culture results and further treatment. We do recommend that you choose and establish care with a Primary Care Physician. ?AND follow up with them ?in 10-14 days to repeat UA to ensure infection is resolved and blood no longer present *Be sure to let your PCP know that we sent urine cultures from the [facility] so they can follow up to ensure that you area the on the correct antibiotic Call your doctor office and make appointment for 48 hours (2 days from today) ?to follow up and get the results of your urine culture and further treatment Clinical Impressions Clinical Impression: Urinary tract infection Qualifiers: Urinary tract infection type: site unspecified Hematuria presence: with hematuria Qualified Code(s): N39.0 - Urinary tract infection, site not specified Instructions Patient Instructions: Urinary Tract Infection, DI for Urinary Tract Infection (UTI), Phenazopyridine, Nitrofurantoin Print Language Print Language: Belgian Discharge ED Provider: Michelle PonceH [facility] HPI General Stated complaint: pressure/frequent urination Mode of Arrival: Ambulatory Source of Information: Patient Limitations: No Limitations Time Seen by Provider: 06/07/24 12:33 Description of Symptoms (Recalled from Triage Doc. by RN): PATIENT C/O BLADDER SPASMS AND PRESSURE THAT STARTED TODAY HEENT Symptoms (Recalled from RN notes): No Resp Symptoms (Recalled from RN notes): No Skin Symptoms (Recalled from RN notes): No MS Symptoms (Recalled from RN notes): No Functional Status (Recalled from RN notes): WNL History of Present Illness Provider Complaint: Patient states that she has a hx of UTI's States she started today with feeling of urgency and frequency and feels like she is having bladder spasms States that these are the symptoms she has with UTI and she usually takes macrobid to clear it up Related Data Home Medications ?Medication ?Instructions ?Recorded ?Confirmed cetirizine 10 mg tablet 10 mg PO DAILY 06/07/24 06/07/24 fluticasone propionate 50 2 spray intranasal DAILY 06/07/24 06/07/24 mcg/actuation nasal spray,suspension montelukast 10 mg tablet 10 mg PO DAILY 06/07/24 06/07/24 Previous Rx's ?Medication ?Instructions ?Recorded nitrofurantoin 100 mg PO Q12H 7 days #14 caps 06/07/24 monohydrate/macrocrystals 100 mg capsule (Macrobid) Allergies Allergy/AdvReac Type Severity Reaction Status Date / Time iodine Allergy Unknown Verified 06/07/24 13:18 allergy reaction latex Allergy Unknown Verified 06/07/24 13:18 allergy reaction Penicillins Allergy Unknown Verified 06/07/24 13:18 allergy reaction Sulfa (Sulfonamide Allergy Unknown Verified 06/07/24 13:18 Antibiotics) allergy reaction Worker's Comp Is this a Worker's Comp case?: No [facility] Disclaimer: The information contained in this section may have been updated after the patient was seen, as this information can be updated by other users. Medical History (Updated 06/07/24 @ 13:14 by Michelle Ponce APRN) Cancer Urinary tract infection History of gastroesophageal reflux (GERD) Surgical History (Updated 06/07/24 @ 12:23 by Flaca Patel RN) History of hysterectomy History of tonsillectomy History of appendectomy Social History Smoking Status: Light tobacco smoker tobacco type: cigarettes packs per day: 1 alcohol intake: never current occupational status: other Travel in the last 8 weeks: None ROS Obtained: Yes All systems reviewed & no additional complaints except as documented and Yes Systems reviewed as appropriate & no additional complaints except as documented Constitutional Constitutional: Reports system reviewed and no additional complaints, except as documented and Reports as per HPI Cardiovascular Cardiovascular: Reports system reviewed and no additional complaints, except as documented and Reports as per HPI Respiratory Respiratory: Reports system reviewed and no additional complaints, except as documented and Reports as per HPI Gastrointestinal Gastrointestingal: Reports system reviewed and no additional complaints, except as documented and as per HPI Genitourinary Female Genitourinary: Reports system reviewed and no additional complaints, except as documented, Reports as per HPI, Reports dysuria, Reports urinary frequency and Reports urinary urgency Physical Exam General General appearance: alert and in no apparent distress ENT ENT exam: Present mucous membranes moist Respiratory Respiratory exam: Present normal lung sounds bilaterally; Absent respiratory distress or wheezes Cardiovascular Cardiovascular exam: Present regular rate, normal rhythm and normal heart sounds Abdominal Exam Abdominal exam: Present soft and normal bowel sounds; Absent distention or tenderness Neurological Exam Neurological exam: Present alert, oriented X3 and normal gait Medical Decision Making Medical Records Screening: Per USPSTF and CDC recommendations, given the prevalence of disease in our region, it is our hospital?s policy to screen for HIV and viral Hepatitis for all patients aged 18 and over and those with ongoing risk factors. [place] Inquiry Pt receiving controlled substance: No [place] was queried for this patient: No Vital Signs: 06/07/24 12:10 Temperature 98.5 F Temperature Source Oral Pulse Rate [Left Brachial] 91 H Respiratory Rate 18 Blood Pressure [Left Arm] 141/91 H Blood Pressure Mean [Left Arm] 107 Blood Pressure Source [Left Arm] Automatic Cuff Blood Pressure Position [Left Arm] Sitting 02 Sat by Pulse Oximetry 98 Oxygen Delivery Method Room Air Lab Data Lab results reviewed: Yes I reviewed the patient's lab results. Orders (Tests/Meds): ORDERS Category Date Time Status UA [Urinalysis and Microscopic] Stat Lab 06/07/24 12:15 Received Medical Decision Narrative: Patient initially did not inform staff of Iodine allergy, pyridium that was ordered was cancelled and Brooke called to make sure they got the cancellation request
[2024-06-07 12:46] LABS: Appearance,Urine CLEAR (Clear); Bilirubin,Urine Negative (Negative); Blood, Urine 1+ (Negative); Color,Urine YELLOW (Yellow); Glucose,Urine (UA) Negative (Negative); Ketones,Urine Negative (Negative); Leukocyte Esterase,Urine 2+ (Negative); Nitrate,Urine POSITIVE (Negative); Protein,Urine TRACE (Negative); Specific Gravity, Urine >= 1.030 (1.005-1.030); Urobilinogen,Urine 0.2 EU/dl (0.2)
[2024-06-07 13:04] LABS: Bacteria,Urine 1+ /lpf; RBC,Urine Occasional #/hpf (0-3)
[2024-06-07 13:22] VITALS: BP 141/91; PULSE 91; RESP 18; TEMP 36.9; O2SAT 98
--- NOTE | 2024-06-09 20:22 | PC.NURSE ---
REVIEWED PATIENT'S URINE CULTURE, NO CHANGE NEEDED AT THIS TIME
== END 2024-06-07 13:24 | disposition home or self-care (01) ==
PROVIDERS: Emergency Provider Nurse Practitioner; PCP Pediatrics
DX: N39.0 Urinary tract infection, site not specified (principal)
CPT/HCPCS: 81001; 87086; 87088; 87186; 99213; G0381

== ENCOUNTER 2025-03-13 08:59 | Outpatient (CLI) | payer MEDICAID, SELFPAY ==
--- OUTSIDE RECORDS SUMMARY | 2025-01-21 10:45 | XMS_ITS | Encounter Summary ---
Author Organization [facility] Address [address] [id number] Care Team Providers Care Digital Content Specialist Name Role Phone Lester Strauss MD Primary Care Provider [phone] Reason for Visit * Reason Comments Primary Care Follow-Up 6 month med check Encounter Details Date Type Department Care Team (Late st Contact Info) Description 01/21/2025 10:45 AM EDT Office Visit [facility] [address] [place] [address] [place] [id number] Lester Strauss MD [address] [place] [address] [place] [id number] Prediabetes (Primary Dx); Mixed hyperlipidemia; Overweight; Generalized anxiety disorder; Cigarette smoker; Seasonal allergic rhinitis due to pollen; Vaginal dryness, menopausal Social History Tobacco Use Types Packs/Day Years Used Date Smoking Tobacco: Every Day Cigarettes 0.3 45.8 Started: 05/13/1979 Smokeless Tobacco: Never Alcohol Use Standard Drinks/Week Comments Not Currently 0 (1 standard drink = 0.6 oz pur e alcohol) PHQ-2 Answer Date Recorded Retired PHQ-9: Brief Depression Severity Measure Score 0 07/09/2023 PHQ-2 Answer Date Recorded Patient Health Questionnaire-2 Score 0 07/14/2024 Comments No Sex and Gender Information Value Date Recorded Sex Assigned at Not on file Legal Sex Female 9:42 AM EDT Gender Identity Not on file Sexual Orientation Not on file documented as of this encounter Last Filed Vital Signs Vital Sign Reading Time Taken Comments Blood Pressure 120/78 01/21/2025 11:12 AM EDT Pulse 81 01/21/2025 10:39 AM EDT Temperature 36.7 C (98 F) 01/21/2025 10:39 AM EDT Respiratory Rate 18 01/21/2025 10:39 AM EDT Oxygen Saturation 97% 01/21/2025 10:39 AM EDT Inhaled Oxygen Concentration - - Weight 64.9 kg (143 lb) 01/21/2025 10:39 AM EDT Height 160 cm (5' 3 ) 01/21/2025 10:39 AM EDT Body Mass Index 25.33 01/21/2025 10:39 AM EDT documented in this encounter Progress Notes * Lester Strauss MD - 01/21/2025 11:11 AM EDTAssociated Problem(s): Vaginal dryness, menopausal Postmenopausal pattern of vaginal dryness for which she had previous been placed on some medicine with benefit. Prescription provided for estradiol 0.1 mg/g vaginal cream used at 1 to 2 g 2-3 times weekly with benefit. No new concerns as of 01/21/2025. * Lester Strauss MD - 01/21/2025 11:11 AM EDTAssociated Problem(s): Seasonal allergic rhinitis due to pollen Good but partial response to use of Zyrtec and Flonase, and addition of Singulair from 07/09/2023 will further beneficial. Nonetheless if Flonase can be irritating she would like to try Astepro and as such I initiated 01/21/2025, use as needed on medicine regimen in a titrated manner. Additional benefit of saline spray, nasal flushing. She would also benefit from smoking cessation. Advised if not improving. * Lester Strauss MD - 01/21/2025 11:11 AM EDTAssociated Problem(s): Prediabetes Hemoglobin A1c 5.7% on 07/09/2023, patient thinks it may have been a little higher in the past. Hemoglobin A1c improved to 5.6% today 01/21/2025, compared to previous 5.9 on 07/14/2024, and 5.8% previous reinforced importance of healthy diet, exercise, and pursuit of weight loss which she thinks she doing generally better with. Caution polyuria and polydipsia is a sign of possible progression of diabetes. * Lester Strauss MD - 01/21/2025 11:10 AM EDTAssociated Problem(s): Overweight Modestly overweight with BMI 25 range, reinforced importance healthy diet, exercise and even modestweight loss for multiple medical comorbidities. * Lester Strauss MD - 01/21/2025 11:10 AM EDTAssociated Problem(s): Mixed hyperlipidemia Most recent cholesterol 07/14/2024 with total cholesterol 223, triglycerides 136, HDL 34, LDL 164. Comparison 07/09/2023 total cholesterol 226, triglycerides 123, HDL 35, LDL 169. None to compare prior, though patient believes her LDL was in the low 200s range a couple years ago. Notable elevation of LDL and the patient is also a smoker, I discussed that she would benefit statin, but had reported m uscle aches on Crestor and Lipitor previous. We have initiated pravastatin 20 mg every other day which she is now taking 10 mg every day and is tolerating overall quite well with minimal achiness. I discussed adding Zetia to this regimen at 10 mg daily cholesterol medicine, and she declines as of 01/21/2025 but will advise if she changes her mind. Continue the pravastatin unchanged at 10 mg total dose daily although taking half a tablet of the 20 mg daily by preference as she feels it smaller and is easier to tolerate. Continue healthy diet, exercise and benefits of even modest weight loss. Monitor cholesterol yearly. * Lester Strauss MD - 01/21/2025 11:08 AM EDTAssociated Problem(s): Generalized anxiety disorder Modest variable anxiety pattern which periodically may flareup modestly but not enough that she feels she needs any medicine. No SI/HI. Reinforced importance of regular exercise, good communication, pursuit of enjoyable activities. If there is progression or worsening we could always reconsider SSRI therapy. Advise any new concerns. * Lester Strauss MD - 01/21/2025 11:08 AM EDTAssociated Problem(s): Cigarette smoker Longstanding smoking, with history of 3/4 packs/day for 40 years, totaling [id number] history. Low-dose CT of the chest from 07/15/2023 overall nonconcerning for 1 year follow-up ordered on 07/14/2024. Currently smoking about 1/4 pack/day, having had benefit from the use of patches from April 2024 but not desiring any further and she will try to smoke less and ultimately quit on her own. She understands long-term risks of ongoing smoke including cancer risk, cardiovascular risk, emphysema, etc. * Lester Strauss MD - 01/21/2025 10:45 AM EDT Images from the original note were not included. Office Note Name: Tawnya Garcia : 1960 Chief Complaint Primary Care Follow-Up (6 month med check) Subjective History of Present Illness: Tawnya Garcia is a 64 y.o. female who presents today for follow-up visit on multimedical problems. Regarding prediabetic pattern, slightly overweight pattern hyperlipidemia she has ongoing improving diet and activity with some modest weight loss over the last 6 months. We did discuss her hyperlipidemia pattern where it was a little bit better with pravastatin, still elevated LDL in the 160 range, and we discussed potential benefit of Zetia or other medicine and she declines but will advise if she changes her mind. She would like to try to continue making healthier dietary and exercise pattern.A little bit of anxiety breakthrough on and off periodically but overall feels she can handle stressors fine. She has had some some modest breakthrough allergy symptoms recently, Flonase is irritating and does not like using it very often, she would be interested in adding an Astepro which is a nasal antihistamine to her regimen. Review of Systems Objective History reviewed. No pertinent past medical history. History reviewed. No pertinent surgical history. Family History Problem Relation Age of Onset COPD Mother Diabetes Father Cancer Father Vital Signs BP 120/78 Pulse 81 Temp 98 ??F (36.7 ??C) (Temporal) Resp 18 Ht 160 cm (63 ) Wt 64.9 kg (143 lb) SpO2 97% BMI 25.33 kg/m?? Estimated body mass index is 25.33 kg/m?? as calculated from the following: Height as of this encounter: 160 cm (63 ). Weight as of this encounter: 64.9 kg (143 lb). Physical Exam Constitutional: General: She is not in acute distress. Appearance: Normal appearance. She is not ill-appearing, toxic-appearing or diaphoretic. HENT: Head: Normocephalic and atraumatic. Right Ear: Ear canal and external ear normal. Left Ear: Ear canal and external ear normal. Ears: Comments: Mild fluid behind the TMs bilaterally, otherwise clear Nose: Rhinorrhea present. Comments: Mild to moderate clear rhinorrhea, pale mucosa Mouth/Throat: Mouth: Mucous membranes are moist. Pharynx: Oropharynx is clear. No oropharyngeal exudate or posterior oropharyngeal erythema. Neck: Vascular: No carotid bruit. Cardiovascular: Rate and Rhythm: Normal rate and regular rhythm. Pulses: Normal pulses. Heart sounds: Normal heart sounds. No murmur heard. No friction rub. No gallop. Pulmonary: Effort: Pulmonary effort is normal. No respiratory distress. Breath sounds: Normal breath sounds. No stridor. No wheezing. Abdominal: General: Abdomen is flat. Bowel sounds are normal. There is no distension. Palpations: Abdomen is soft. There is no mass. Tenderness: There is no abdominal tenderness. There is no guarding or rebound. Musculoskeletal: Cervical back: Neck supple. No tenderness. Right lower leg: No edema. Left lower leg: No edema. Lymphadenopathy: Cervical: No cervical adenopathy. Skin: General: Skin is warm and dry. Capillary Refill: Capillary refill takes less than 2 seconds. Neurological: General: No focal deficit present. Mental Status: She is alert and oriented to person, place, and time. Mental status is at baseline. Psychiatric: Mood and Affect: Mood normal. Behavior: Behavior normal. Thought Content: Thought content normal. POCT Results (if applicable): Results for orders placed or performed in visit on 01/21/25 POC Glycosylated Hemoglobin (Hb A1C) Collection Time: 01/21/25 10:49 AM Specimen: Blood Result Value Ref Range Hemoglobin A1C 5.6 4.5 - 5.7 % Lot Number [id number] Expiration Date 09/28/2026 POC Glucose, Blood Collection Time: 01/21/25 10:50 AM Specimen: Blood Result Value Ref Range Glucose 106 70 - 130 mg/dL Lot Number [id number] Expiration Date 04/22/2025 Assessment and Plan Diagnoses and all orders for this visit: 1. Prediabetes (Primary) Assessment & Plan: Hemoglobin A1c 5.7% on 07/09/2023, patient thinks it may have been a little higher in the past. Hemoglobin A1c improved to 5.6% today 01/21/2025, compared to previous 5.9 on 07/14/2024, and 5.8% previous reinforced importance of healthy diet, exercise, and pursuit of weight loss which she thinks she doing generally better with. Caution polyuria and polydipsia is a sign of possible progression of diabetes. Orders: - POC Glycosylated Hemoglobin (Hb A1C) - POC Glucose, Blood 2. Mixed hyperlipidemia Assessment & Plan: Most recent cholesterol 07/14/2024 with total cholesterol 223, triglycerides 136, HDL 34, LDL 164. Comparison 07/09/2023 total cholesterol 226, triglycerides 123, HDL 35, LDL 169. None to compare prior, though patient believes her LDL was in the low 200s range a couple years ago. Notable elevation of LDL and the patient is also a smoker, I discussed that she would benefit statin, but had reported m uscle aches on Crestor and Lipitor previous. We have initiated pravastatin 20 mg every other day which she is now taking 10 mg every day and is tolerating overall quite well with minimal achiness. I discussed adding Zetia to this regimen at 10 mg daily cholesterol medicine, and she declines as of 01/21/2025 but will advise if she changes her mind. Continue the pravastatin unchanged at 10 mg total dose daily although taking half a tablet of the 20 mg daily by preference as she feels it smaller and is easier to tolerate. Continue healthy diet, exercise and benefits of even modest weight loss. Monitor cholesterol yearly. Orders: - pravastatin (PRAVACHOL) 20 MG tablet; Take 0.5 tablets by mouth Every Other Day. Dispense: 45 tablet; Refill: 1 3. Overweight Assessment & Plan: Modestly overweight with BMI 25 range, reinforced importance healthy diet, exercise and even modestweight loss for multiple medical comorbidities. 4. Generalized anxiety disorder Assessment & Plan: Modest variable anxiety pattern which periodically may flareup modestly but not enough that she feels she needs any medicine. No SI/HI. Reinforced importance of regular exercise, good communication, pursuit of enjoyable activities. If there is progression or worsening we could always reconsider SSRI therapy. Advise any new concerns. 5. Cigarette smoker Assessment & Plan: Longstanding smoking, with history of 3/4 packs/day for 40 years, totaling [id number] history. Low-dose CT of the chest from 07/15/2023 overall nonconcerning for 1 year follow-up ordered on 07/14/2024. Currently smoking about 1/4 pack/day, having had benefit from the use of patches from April 2024 but not desiring any further and she will try to smoke less and ultimately quit on her own. She understands long-term risks of ongoing smoke including cancer risk, cardiovascular risk, emphysema, etc. 6. Seasonal allergic rhinitis due to pollen Assessment & Plan: Good but partial response to use of Zyrtec and Flonase, and addition of Singulair from 07/09/2023 will further beneficial. Nonetheless if Flonase can be irritating she would like to try Astepro and as such I initiated 01/21/2025, use as needed on medicine regimen in a titrated manner. Additional benefit of saline spray, nasal flushing. She would also benefit from smoking cessation. Advised if not improving. Orders: - azelastine (ASTELIN) 0.1 % nasal spray; Administer 2 sprays into the nostril(s) as directed by provider 2 (Two) Times a Day As Needed for Rhinitis. Use in each nostril as directed Dispense: 30 mL; Refill: 3 7. Vaginal dryness, menopausal Assessment & Plan: Postmenopausal pattern of vaginal dryness for which she had previous been placed on some medicine with benefit. Prescription provided for estradiol 0.1 mg/g vaginal cream used at 1 to 2 g 2-3 times weekly with benefit. No new concerns as of 01/21/2025. Orders: - estradiol (ESTRACE) 0.1 MG/GM vaginal cream; Insert 2 g into the vagina 3 (Three) Times a Week. Insert 2 grams of medication via applicater three times weekly. Dispense: 42.5 g; Refill: 5 Vaccine Counseling: Smoking Cessation: 3-10 mintues spent counseling Will try to cut down Follow Up Return in about 6 months (around 07/23/2025) for Annual physical. Lester Strauss MD documented in this encounter Plan of Treatment Upcoming Encounters Date Type Department Care Team (Late st Contact Info) Description 07/23/2025 8:30 AM EST Office Visit [facility] [address] [place] [address] [place] [id number] Lester Strauss MD [address] [place] [address] [place] [id number] documented as of this encounter Procedures Procedure Name Priority Date/Time Associated Diagnosis Comments POCT GLUCOSE, BLD (NON STRIP) Routine 01/21/2025 10:50 AM EDT Prediabetes POCT GLYCOSYLATED HEMOGLOBIN (HGB A1C) Routine 01/21/2025 10:49 AM EDT Prediabetes documented in this encounter Results * POC Glucose, Blood (01/21/2025 10:50 AM EDT) Glucose 106 70 - 130 mg/dL Lot Number [id number] Expiration Date 04/22/2025 Blood 01/21/2025 10:5 0 AM EDT Lester Strauss MD POINT OF CARE TEST ORDERABLES Fi nal Result * POC Glycosylated Hemoglobin (Hb A1C) (01/21/2025 10:49 AM EDT) Hemoglobin A1C 5.6 4.5 - 5.7 % [facility] Lot Number [id number] [facility] Expiration Date 09/28/2026 [facility] Blood 01/21/2025 10:4 9 AM EDT us Lester Strauss MD POINT OF CARE TEST ORDERABLES Fi nal Result [facility]
[address] [place] [address], documented in this encounter Visit Diagnoses Diagnosis Prediabetes- Primary Other abnormal glucose Mixed hyperlipidemia Overweight Generalized anxiety disorder Cigarette smoker Tobacco use disorder Seasonal allergic rhinitis due to pollen Vaginal dryness, menopausal documented in this encounter Care Teams Digital Content Specialist Relationship Specialty Start Date End Date Lester Strauss MD [address] [place] [address] [place] [address] PCP - General Internal Medicine 04/08/23 documented as of this encounter
--- OUTSIDE RECORDS SUMMARY | 2025-03-15 09:07 | XMS_ITS | Encounter Summary ---
Author Organization [facility] Address [address] [place] [address] Care Team Providers Care Directional Driller Name Role Phone Lester Strauss MD Primary Care Provider [phone] Reason for Visit * Reason Comments Med Refill Encounter Details Date Type Department Care Team (Late st Contact Info) Description 01/31/2025 Refill [facility] [address] [place] [address] [place] [id number] Lester Strauss MD [address] [place] [address] [place] [id number] Seasonal allergic rhinitis due to pollen; Mixed hyperlipidemia Social History Tobacco Use Types Packs/Day Years [...] on file documented as of this encounter Plan of Treatment Upcoming Encounters Date Type Department Care Team (Late st Contact Info) Description 07/23/2025 8:30 AM EST Office Visit [facility] [address] [place] [address] [place] [id number] Lester Strauss MD [address] [place] [address] [place] [id number] documented as of this encounter Visit Diagnoses Diagnosis Seasonal allergic rhinitis due to pollen Mixed hyperlipidemia documented in this encounter Care Teams Directional Driller Relationship Specialty Start Date End Date Lester Strauss MD [address] [place] [address] PCP - General Internal Medicine 04/08/23 documented as of this encounter
--- OUTSIDE RECORDS SUMMARY | 2025-03-15 09:07 | XMS_ITS | Encounter Summary ---
Author Organization [facility] Address [address] [place] [address] Care Team Providers Care Vinegar Maker Name Role Phone Lester Strauss MD Primary Care Provider [phone] Encounter Details Date Type Department Care Team (Latest Contact Info) Description 01/21/2025 Travel Social History Tobacco Use Types Packs/Day Years [...] Description 07/23/2025 8:30 AM EST Office Visit [facility] [address] [place] [address] [place] [id number] Lester Strauss MD [address] [place] [address] [place] [id number] documented as of this encounter Visit Diagnoses Not on filedocumented in this encounter Care Teams Vinegar Maker Relationship Specialty Start Date End Date Lester Strauss MD [address] [place] [address] PCP - General Internal Medicine 8/28/23 documented as of this encounter
--- OUTSIDE RECORDS SUMMARY | 2025-03-15 09:07 | XMS_ITS | Clinical Summary ---
Author Organization [facility] Address [address] [place] [address] Care Team Providers Care Supervisor Laundry Name Role Phone Lester Strauss MD Primary Care Provider [phone] Allergies Active Allergy Reactions Criticality Noted Date Comments Iodine Rash Low 04/08/2023 Latex Hives Medium 04/30/2024 Penicillins Rash Low 04/08/2023 Sulfa Antibiotics Rash Low 04/08/2023 Medications fluticasone (FLONASE) 50 MCG/ACT nasal sprayIndications: Seasonal allergic rhinitis due to pollen INSTILL 2 SPRAYS IN EACH NOSTRIL EVERY DAY DIRECTED 16 g 3 01/07/20 25 Active azelastine (ASTELIN) 0.1 % nasal sprayIndications: Seasonal allergic rhinitis due to pollen Administer 2 sprays into the nostril(s) as directed by provider 2 (Two) Times a Day As Needed for Rhinitis. Use in each nostril as directed 30 mL 3 01/22/20 25 Active estradiol (ESTRACE) 0.1 MG/GM vaginal creamIndications: Vaginal dryness, menopausal Insert 2 g into the vagina 3 (Three) Times a Week. Insert 2 grams of medication via applicater three times weekly. 42.5 g 5 01/23/20 25 Active montelukast (SINGULAIR) 10 MG tabletIndications :Seasonal allergic rhinitis due to pollen TAKE ONE TABLET BY MOUTH EVERY NIGHT 30 tablet 3 02/02/20 25 Active pravastatin (PRAVACHOL) 20 MG tabletIndications :Mixed hyperlipidemia TAKE ONE TABLET BY MOUTH EVERY OTHER DAY 45 tablet 1 02/02/20 25 Active cetirizine (zyrTEC) 10 MG tabletIndications :Seasonal allergic rhinitis due to pollen TAKE ONE TABLET BY MOUTH EVERY DAY 30 tablet 3 03/01/20 25 Active cetirizine (zyrTEC) 10 MG tabletIndications :Seasonal allergic rhinitis due to pollen Take 1 tablet by mouth Daily. 30 tablet 3 07/14/20 24 2024 Discontinued Active Problems Problem Noted Date Diagnosed Date Generalized anxiety disorder 07/14/2024 Assessment & Plan (01/21/2025 11:08 AM EDT): Modest variable anxiety pattern which periodically may flareup modestly but not enough that she feels she needs any medicine. No SI/HI. Reinforced importance of regular exercise, good communication, pursuit of enjoyable activities. If there is progression or worsening we could always reconsider SSRI therapy. Advise any new concerns. Assessment & Plan (07/14/2024 12:03 PM EST): Modest variable anxiety pattern exacerbated by 2 deaths in the family 2023. Nonetheless she feels she is handling stressors recently well, and declines need for medicine. No SI/HI. Reinforced importance of regular exercise, good communication, pursuit of enjoyable activities. If there is progression or worsening we could always reconsider SSRI therapy. Advise any worsening. Acute dysfunction of Eustachian tube, bilateral 07/14/2024 Assessment & Plan (07/14/2024 12:02 PM EST): Progressing pattern of ear pressure bilaterally with some sense of positional wooziness related to eustachian tube dysfunction from allergies. Initiate prednisone 10 mg tablet 2 tablets daily x 5 days which should also do some benefit on allergy symptoms. Additional benefit of saline spray, nasal flushing. Advise if not improving. Overweight 07/14/2024 Assessment & Plan (01/21/2025 11:10 AM EDT): Modestly overweight with BMI 25 range, reinforced importance healthy diet, exercise and even modest weight loss for multiple medical comorbidities. Assessment & Plan (07/14/2024 12:27 PM EST): Modestly overweight with BMI 26 range, reinforced importance healthy diet, exercise and even modest weight loss for multiple medical comorbidities. Strain of left triceps 05/04/2024 Assessment & Plan (05/04/2024 8:03 AM EDT): Patient with two days of tricep and anterior shoulder pain after carrying in groceries. It has been responding well to conservative measures including OTC pain patch, tylenol and ibuprofen. She declines imaging today since she is showing improvement -Will prescribe steroid to help with lingering inflammation. Urged to continue use of Salonpas patch. Patient also advised to start utilizing cold compress 3-4 times daily for duration of 15 to 20 minutes. If does not continue to improve she will follow-up with her regular PCP, Dr. Lester Strauss to pursue imaging and further management COVID-19 04/23/2024 Assessment & Plan (04/23/2024 2:03 PM EDT): Flu screen negative, COVID-19 positive. Onset of symptoms 4 days ago and exposure a few days prior to that. No lower respiratory signs or symptoms concern. Good hydration. With age and medical comorbidities I did recommend potential benefit of Paxlovid therapy but she declines desire. If she would change her mind in the next day or so, she would be full dosing as she has had good kidney function creatinine 0.82 and GFR 81 on 07/09/2023. The only medicine to be recommended to hold while on Paxil it would be Flonase. Recommend saline spray, nasal flushing. She already has Robitussin DM to use for cough and congestion. Caution contact with other visuals especially the next 24 to 40 hours and then at that point transition if she is feeling better to normal activities wearing a mask when around other people for another 5 days. Advise concerns. Prediabetes 01/07/2024 Assessment & Plan (01/21/2025 11:11 AM EDT): Hemoglobin A1c 5.7% on 07/09/2023, patient thinks [...] a sign of possible progression of diabetes. Assessment & Plan (07/14/2024 12:04 PM EST): Hemoglobin A1c 5.7% on 07/09/2023, patient thinks it may have been a little higher in the past. Hemoglobin A1c to be checked with blood work today as we have no rapid test in the office but previous was 5.8%. Management per results. Reinforced importance of healthy diet, exercise, and pursuit of weight loss which she thinks she doing generally better with. Caution polyuria and polydipsia is a sign of possible progression of diabetes. Assessment & Plan (04/23/2024 2:04 PM EDT): Hemoglobin A1c 5.7% on 07/09/2023, patient thinks it may have been a little higher in the past. Hemoglobin A1c 2023 slightly increased at 5.8%. Consistent with prediabetic pattern, no indication for medication but reinforced importance of healthy diet, exercise, w for physical in July 2024. e will plan to recheck her hemoglobin A1c when she follows up she feels she is done a little bit better with diet and activity over the last few months. Caution polyuria and polydipsia is a sign of possible progression of diabetes. Assessment & Plan (01/07/2024 12:43 PM EDT): Hemoglobin A1c 5.7% on 07/09/2023, patient thinks it may have been a little higher in the past. Hemoglobin A1c today slightly increased at 5.8%. Consistent with prediabetic pattern, no indication for medication but reinforced importance of healthy diet, exercise, with plan to recheck in 6 months time. Caution polyuria and polydipsia is a sign of possible progression of diabetes. Mixed hyperlipidemia 01/07/2024 Assessment & Plan (01/21/2025 11:10 AM EDT): Most recent cholesterol 07/14/2024 with total cholesterol [...] she would benefit statin, but had reported muscle aches on Crestor and Lipitor previous. We [...] even modest weight loss. Monitor cholesterol yearly. Assessment & Plan (07/14/2024 12:04 PM EST): 07/09/2023 total cholesterol 226, triglycerides 123, HDL 35, LDL 169. None to compare prior, though patient believes her LDL was in the low 200s range a couple years ago. Notable elevation of LDL and the patient is also a smoker, overall I feel she would benefit from statin, but she reports having had muscle aches on Crestor and Lipitor previous, with transition to pravastatin 20 mg every other day which she has tolerated quite well with only a little bit achiness. We will continue unchanged with recheck of cholesterol at this time. Continue healthy diet, exercise and benefits of even modest weight loss. Assessment & Plan (01/07/2024 12:42 PM EDT): 07/09/2023 total cholesterol 226, triglycerides 123, HDL 35, LDL 169. None to compare prior, though patient believes her LDL was in the low 200s range a couple years ago. Notable elevation of LDL and the patient is also a smoker, overall I feel she would benefit from statin, but she reports having had muscle aches on Crestor and Lipitor previous, as such plan was initiated pravastatin 20 mg daily every other day for the first month and we could potentially transition to once daily. Patient has not yet initiated, but after discussion she is agreeable to pursuing an we will recheck CMP and lipid panel when she follows up once taking medicine regularly. Continue healthy diet, exercise and benefits of even modest weight loss. Encounter for general adult medical examination with abnormal findings 07/09/2023 Assessment & Plan (07/14/2024 12:02 PM EST): Last screening blood work 07/09/2023 including negative HIV and hepatitis C virus screening. Repeat blood work ordered 07/14/2024 with management per results. Mammogram negative on 04/20/2024 at [facility], repeat yearly. Cologuard negative on 05/06/2023, repeat in 3 years. Patient has history of stage I cervical cancer in with total abdominal hysterectomy including removal of cervix and the right ovary, with subsequent vaginal swabs for multiple report is negative, she declines further understanding ongoing recommendation to obtain. Patient declines flu vaccine. Assessment & Plan (07/09/2023 10:26 AM EST): Unknown last screening blood work, obtained today 07/09/2023 with managed per results. Mammogram negative on 04/08/2023 at [facility], repeat yearly. Cologuard negative on 05/06/2023, repeat in 3 years. Patient has history of stage I cervical cancer in with total abdominal hysterectomy including removal of cervix and the right ovary, with subsequent vaginal swabs for multiple report is negative, she declines further understanding ongoing recommendation to obtain. Patient declines flu vaccine. Palpitations 07/09/2023 Assessment & Plan (07/14/2024 11:59 AM EST): Rare palpitation, not associated with any shortness of breath or chest tightness, nonexertional. EKG normal 07/14/2024 and unchanged compared to 07/09/2023. Overall nonconcerning pattern, no further evaluation necessary. Caution caffeine intake as possible exacerbating factor. Assessment & Plan (07/09/2023 10:26 AM EST): Rare palpitation, not associated shortness of breath or chest tightness. EKG nonconcerning with normal sinus rhythm, possibly nonspecific T waves but nonconcerning as isolated variant, otherwise none to compare prior. Overall nonconcerning pattern, no further evaluation necessary. Need for vaccination 07/09/2023 Assessment & Plan (07/09/2023 10:26 AM EST): Patient declines flu vaccine. Recommend pneumococcal 20 valent vaccine at health department based on smoking history. Upper back pain on right side 07/09/2023 Assessment & Plan (01/07/2024 12:45 PM EDT): Intermittent pattern on and off as discussed 07/01/2023 over the preceding 6 months or so without any clear triggering episode. More in the muscle of the right upper back just medial to the scapula. No spinous process tenderness, not felt to be in the mid back at all. As such very muscular, no indication for any x-ray imaging but I would recommend physical therapy although not pursued, is doing a bit better at this time. Continue heating pad, light stretching, infrequent as needed anti-inflammatories. Advise any worsening where we could consider x-ray imaging and/or proceed with therapy. Assessment & Plan (07/09/2023 10:28 AM EST): Intermittent pattern on and off the last 6 months or so without any clear triggering episode. More in the muscle of the right upper back just medial to the scapula. No spinous process tenderness, not felt to be in the mid back at all. As such very muscular, no indication for any x-ray imaging but I would recommend physical therapy to evaluate due to this persisting pattern. Heating pad, light stretching, infrequent as needed anti-inflammatories. As this is modest and intermittent, I will hold off on scheduling a specific follow-up in the next couple months but if its not seeing improvement or any worsening, reassess at that time. Frequent UTI 04/24/2023 Assessment & Plan (04/24/2023 2:04 PM EDT): presents today for follow-up after being evaluated in the emergency department at [facility] for UTI. Patient notes that for approximately 2 to 3 days prior to presentation she began to have her usual symptoms of UTI including urgency, frequency, pyuria, suprapubic pain and bladder spasms. On the day of presentation she reports progression of symptoms to the point she could no longer handle it, had put off being evaluated thinking perhaps it was an episode of diverticulitis which she had experienced in the past with the same symptoms. Patient reports fairly frequent UTI for the last 7 years, thought to be related to menopause and decreased estrogen. She notes prior to this episode she had not had a UTI in over a year and a half. She reports less frequency and UTI since her previous PCP initiated estradiol cream. He is regularly patient of Dr. Lester Strauss, who increased her estradiol to 2 g daily from the previous 1-1/2 g weekly dose of her previous PCP. Patient underwent full evaluation emergency department and was diagnosed with urinary tract infection, currently being treated with nitrofurantoin 100 mg daily. Patient reports emergency department obtain culture as well, although those results are not available at this time, we will request from [facility]. Patient does note improvement in her symptoms since starting nitrofurantoin. -Will obtain culture and sensitivity results from [facility] to ensure she is receiving appropriate treatment -Encouraged increased water consumption -She has follow-up appointment with Dr. Lester Strauss July 09. She is to notify if symptoms do not completely resolved Colon cancer screening 04/08/2023 Assessment & Plan (04/08/2023 10:43 AM EDT): Patient reports negative Cologuard February 2020, says she is due for 3-year repeat. Order provided. Cigarette smoker 04/08/2023 Assessment & Plan (01/21/2025 11:08 AM EDT): Longstanding smoking, with history of 3/4 packs/day for 40 years, totaling 45-tsql-urcn history. Low-dose CT of the chest from [...] including cancer risk, cardiovascular risk, emphysema, etc. Assessment & Plan (07/14/2024 12:05 PM EST): Longstanding smoking, with history of 3/4 packs/day for 40 years, totaling 28-spwb-ovqd history. Low-dose CT of the chest from 07/15/2023 overall nonconcerning for 1 year follow-up ordered on 07/14/2024. Currently smoking less than 1/4 pack/day, having had benefit from the use of patches from April 2024 but not desiring any further and she will try to quit on her own. She understands long-term risks of ongoing smoke including cancer risk, cardiovascular risk, emphysema, etc. Assessment & Plan (04/23/2024 2:03 PM EDT): Longstanding smoking, with history of 3/4 packs/day for 40 years, totaling 21-ocke-yapm history. Low-dose CT of the chest from 07/15/2023 overall nonconcerning for 1 year follow-up recommended. Current COVID-19 she is active smoking quite a bit less, over the last 5 days only about 3 to 4 cigarettes a day, as such she would be interested in trying to start nicotine patches to help with the transition to cessation. Reinforced benefits of smoking cessation , and prescription for nicotine patches provided today 04/23/2024. She understands long-term risks of ongoing smoke including cancer risk, cardiovascular risk, emphysema, etc. Assessment & Plan (01/07/2024 12:44 PM EDT): Longstanding smoking, current at less than 1/2 packs/day, with history of 3/4 packs/day for 40 years, totaling 37-rjpu-flan history. Low-dose CT of the chest from 07/15/2023 overall nonconcerning for 1 year follow-up recommended. Reinforced benefits of smoking cessation which she will consider and was agreeable to nicotine patches which have been provided today as of 01/07/2024. She understands long-term risks of ongoing smoke including cancer risk, cardiovascular risk, emphysema, etc. Assessment & Plan (07/09/2023 10:27 AM EST): Longstanding smoking, current 1/2 pack/day with history of 3/4 packs/day for 40 years, totaling 69-fkwa-homq history. Patient agreeable to low-dose CT of the chest as of 07/09/2023 visit. Reinforced benefits of smoking cessation which she is not quite ready to pursue but will consider in the future. I discussed potentially Chantix or nicotine placement product such as patches and she will consider. She understands long-term risks of ongoing smoke including cancer risk, cardiovascular risk, emphysema, etc. Assessment & Plan (04/08/2023 10:42 AM EDT): Longstanding smoking, current 1/2 pack/day with history of 3/4 packs/day for 40 years, totaling 92-hwkh-zemj history. Recommendation for low-dose CT the chest, patient declines today but will think about it after discussing benefits of this lung cancer screening. Reinforced benefits of smoking cessation which she is not quite ready to pursue but will consider in the future. I discussed potentially Chantix or nicotine placement product such as patches and she will consider. She understands long-term risks of ongoing smoke including cancer risk, cardiovascular risk, emphysema, etc. Breast cancer screening 04/08/2023 Assessment & Plan (04/08/2023 10:44 AM EDT): Last mammogram approximately 2019, ordered today through [facility]. She understands benefits of ongoing breast cancer screening. Seasonal allergic rhinitis due to pollen 023 Assessment & Plan (01/21/2025 11:11 AM EDT): Good but partial response to use of [...] from smoking cessation. Advised if not improving. Assessment & Plan (07/14/2024 12:05 PM EST): Good but partial response to use of Zyrtec and Flonase, and addition of Singulair from 07/09/2023 with benefit. Use seasonally and as needed. Additional benefit of saline spray, nasal flushing. No new concerns as of 07/14/2024. Assessment & Plan (01/07/2024 12:43 PM EDT): Good but partial response to use of Zyrtec and Flonase, and addition of Singulair from 07/09/2023 with benefit. Use seasonally and as needed. Additional benefit of saline spray, nasal flushing. Advise concerns. Assessment & Plan (07/09/2023 10:27 AM EST): Good but partial response to use of Zyrtec and Flonase, partly as Flonase can be irritating and it limits her use. She would be interested in adding Singulair to her regimen to use as needed, use for next couple weeks, then as needed. Additional benefit of saline spray, nasal flushing. Advise concerns. Assessment & Plan (04/08/2023 10:43 AM EDT): Seasonal pattern more winter than spring and fall, currently modestly flaring. Prescription provided for Zyrtec and Flonase to use for the next couple weeks, then as needed. We could add Singulair in the future for any breakthrough symptoms. Additional benefit of saline spray, nasal flushing, benefits of smoking cessation. Advise concerns. Vaginal dryness, menopausal 04/08/2023 Assessment & Plan (01/21/2025 11:11 AM EDT): Postmenopausal pattern of vaginal dryness for which she had previous been placed on some medicine with benefit. Prescription provided for estradiol 0.1 mg/g vaginal cream used at 1 to 2 g 2-3 times weekly with benefit. No new concerns as of 01/21/2025. Assessment & Plan (07/14/2024 12:06 PM EST): Postmenopausal pattern of vaginal dryness for which she had previous been placed on some medicine with benefit. Prescription provided for estradiol 0.1 mg/g vaginal cream used at 1 to 2 g 2-3 times weekly with benefit. No new concerns as of 07/14/2024. Assessment & Plan (01/07/2024 12:45 PM EDT): Postmenopausal pattern of vaginal dryness for which she had previous been placed on some medicine with benefit. Prescription provided for estradiol 0.1 mg/g vaginal cream used at 1 to 2 g 2-3 times weekly with benefit. Advise concerns. Assessment & Plan (07/09/2023 10:28 AM EST): Postmenopausal pattern of vaginal dryness for which she had previous been placed on some medicine with benefit. Prescription provided for estradiol 0.1 mg/g vaginal cream to be used at 1 to 2 g daily for symptom benefit previous although she feels that the daily use was causing some irritation, as such we will decrease down to 2-3 times weekly as she will likely still see benefit. Advise concerns. Assessment & Plan (04/24/2023 2:02 PM EDT): Longstanding pattern of postmenopausal vaginal dryness, which prior to April 08 had been utilizing estradiol half gram weekly per her old PCP. During her initial visit with Dr. Lester Strauss she was provided with estradiol 0.1 mg/g vaginal cream to be used at 1 to 2 g daily for symptom benefit. Assessment & Plan (04/08/2023 10:43 AM EDT): Postmenopausal pattern of vaginal dryness for which she had previous been placed on some medicine with benefit. Prescription provided for estradiol 0.1 mg/g vaginal cream to be used at 1 to 2 g daily for symptom benefit. Advised if not improving. Acute otalgia, right 04/08/2023 Assessment & Plan (04/08/2023 10:45 AM EDT): No signs of otitis media or otitis externa, she does have some fluid behind the TM which I suspect is the main culprit of her ear pain. Treating allergies should be beneficial. Advise any worsening. Encounters Date Type Department Care Team Description 02/28/2025 Refill [facility] [address] [place] [address] [place] [id number] Lester Strauss MD Seasonal allergic rhinitis due to pollen 01/31/2025 Refill [facility] [address] [place] [id number] Lester Strauss MD Seasonal allergic rhinitis due to pollen; Mixed hyperlipidemia 01/21/2025 10:45 AM EDT Office Visit [facility] [address] [place] [address] [place] [phone] Lester Strauss MD Prediabetes (Primary Dx); Mixed hyperlipidemia; Overweight; Generalized anxiety disorder; Cigarette smoker; Seasonal allergic rhinitis due to pollen; Vaginal dryness, menopausal 01/21/2025 Travel 01/06/2025 Refill [facility] [address] [place] [address] [place] [phone] Lester Strauss MD Seasonal allergic rhinitis due to pollen from Last 3 Months Immunizations Immunization Administration Dates Next Due Tdap 08/12/2015 Family History Medical History Relation Name Comments Cancer Father Diabetes Father COPD Mother Relation Name Status Comments Father Mother Alive Social History Tobacco Use Types Packs/Day Years Used Date Smoking Tobacco: Every Day Cigarettes 0.3 45.8 Started: 05/13/1979 Smokeless Tobacco: Never Tobacco Cessation:Ready to Q uit: Yes; Counseling Given: Yes Alcohol Use Standard Drinks/Week Comments Not Currently [...] on file Sexual Orientation Not on file Last Filed Vital Signs Vital Sign Reading [...] Mass Index 25.33 01/21/2025 10:39 AM EDT Plan of Treatment Upcoming Encounters Date Type Department Care Team (Late st Contact Info) Description 07/23/2025 8:30 AM EST Office Visit [facility] [address] [place] [address] Lester Strauss MD [address] [place], [place] [address] Health Maintenance Due Date Last Done Comments Annual Gynecologic Pelvic an d Breast Exam 1961 Pneumococcal Vaccine 50+ (1 of 2 - PCV) 1980 PAP SMEAR 1982 COLON CANCER SCREENING 5 YEA R SIGMOIDOSCOPY [address] COLONOGRAPHY 2006 FECAL OCCULT BLOOD TEST 2006 FIT Testing (1 year) 2006 ZOSTER VACCINE (1 of 2) 04/19/2025 Post poned from 2011 (Patient Refused) COVID-19 Vaccine (1 - 2023-2 5 season) 2025 Postponed from 04/12/2024 (Patient Refused) INFLUENZA VACCINE 05/12/2025 ANNUAL PHYSICAL 07/14/2025 07/14/2024 LIPID PANEL 07/14/2025 07/14/2024, 07/09/2023 TDAP/TD VACCINES (2 - Td or Tdap) 08/12/2025 08/12/2015 MAMMOGRAM 04/20/2026 04/20/2024, 04/08/2023 COLOGUARD 05/06/2026 05/06/2023, 03/11/2020 COLORECTAL CANCER SCREENING 05/06/2026 HEPATITIS C SCREENING Completed 07/09/2023 LUNG CANCER SCREENING Discontinued 07/22/2024 , 07/09/2023 Procedures Procedure Name Priority Date/Time Associated Diagnosis Comments POCT GLUCOSE, BLD (NON STRIP) Routine 01/21/2025 10:50 AM EDT Prediabetes POCT GLYCOSYLATED HEMOGLOBIN (HGB A1C) Routine 01/21/2025 10:[address] CHEST LOW DOSE WO CANCER SCREENING Routine 07/22/2024 Smoking LIPID PANEL Routine 07/14/2024 9:29 AM EST Encounter for general adult medical examination with abnormal findings MAMMO SCREENING DIGITAL TOMOSYNTHESIS BILATERAL W CAD Routine 04/20/2024 Screening mammogram for breast cancer HEPATITIS C ANTIBODY Routine 07/09/2023 10:14 AM EST Encounter for general adult medical examination with abnormal findings COLOGUARD Routine 05/06/2023 7:45 AM EDT Colon cancer screening from Last 3 Months or Most Recently Relevant to Health Maintenance Results * POC Glucose, Blood (01/21/2025 10:50 AM EDT) Glucose 106 70 - 130 mg/dL Lot Number [id number] Expiration Date 04/22/2025 Blood 01/21/2025 10:5 0 AM EDT us Lester Strauss MD POINT OF CARE TEST ORDERABLES Fi nal Result * POC Glycosylated Hemoglobin (Hb A1C) (01/21/2025 10:49 AM EDT) Hemoglobin A1C 5.6 4.5 - 5.7 % [facility] Lot Number [id number] [facility] Expiration Date 09/28/2026 [facility] Blood 01/21/2025 10:4 9 AM EDT us Lester Strauss MD POINT OF CARE TEST ORDERABLES Fi nal Result [facility]
[address] [place] [address], * CT Chest Low Dose Cancer Screening WO (07/22/2024) Anatomical Region Laterality Modality Chest Computed Tomogra phy us Lester Strauss MD IMG CT ORDERABLES Final Result * (ABNORMAL) Lipid Panel (07/14/2024 9:29 AM EST) Total Cholesterol 223(H) 100 - 199 mg/dL [facility] Triglycerides 136 0 - 149 mg/dL [facility] HDL Cholesterol 34(L) >39 mg/dL [facility] VLDL Cholesterol Arnoldo 25 5 - 40 mg/dL [facility] LDL Chol Calc (NIH) 164(H) 0 - 99 mg/dL [facility] Blood 07/14/2024 9:29 AM EST 07/14/2024 Comment:Blood Release to [facility] (AMBULATORY) - 07/15/2024 11:07 AM EST Performed at: 01 - [address] [id number] Economics Analyst: Josef Goddard PhD, Phone: [phone] us Lester Strauss MD LAB BLOOD ORDERABLES Final Resul t [facility] (AMBULATORY) [address] [place] [address], [facility] [address] [place] [id number], * Mammo Screening Digital Tomosynthesis Bilateral With CAD (04/20/2024) Anatomical Region Laterality Modality Breast N/A Mammography us Lester Strauss MD IMG MAMMOGRAPHY ORDERABLES Final Result * Hepatitis C Antibody (07/09/2023 10:14 AM EST) Hep C Virus Ab Non Reactive Non Reactive [facility] Comment: HCV antibody alone does not differentiate between previously resolved infection and active infection. Equivocal and Reactive HCV antibody results should be followed up with an HCV RNA test to support the diagnosis of active HCV infection. Blood Structure of right upper limb / Unknown 07/09/2023 10:14 AM EST 07/10/2023 Comment:Blood Release to [facility] (AMBULATORY) - 07/10/2023 9:07 AM EST Performed at: 01 - [facility] [id number] Economics Analyst: Josef Goddard PhD, Phone: [phone] Lester Strauss MD LAB BLOOD ORDERABLES Final Resul t [facility] (AMBULATORY) [address] [place] [address], [place] [phone] [facility] [address] [place] [address], [place] [phone] * Cologuard - Stool, Per Rectum (05/06/2023 7:45 AM EDT) Cologuard Negative Negative 05/10/2023 1:34 AM EDT [facility] (CLIA #:[id number]) Comment: NEGATIVE TEST RESULT. A negative Cologuard result indicates a low likelihood that a colorectal cancer (CRC) or advanced adenoma (adenomatous polyps with more advanced pre-malignant features) is present. The chance that a person with a negative Cologuard test has a colorectal cancer is less than 1 in 1500 (negative predictive value >99.9%) or has an advanced adenoma is less than 5.3% (negative predictive value 94.7%). These data are based on a prospective cross-sectional study of 10,000 individuals at average risk for colorectal cancer who were screened with both Cologuard and colonoscopy. (Natasha Ortez et al, N Engl J Med 2014;370(14):1991-3704) The normal value (reference range) for this assay is negative. COLOGUARD RE-SCREENING RECOMMENDATION: Periodic colorectal cancer screening is an important part of preventive healthcare for asymptomatic individuals at average risk for colorectal cancer. Following a negative Cologuard result, the [place] [employer] and U.S. Multi-Society Task Force screening guidelines recommend a Cologuard re-screening interval of 3 years. References: [place] [employer] Guideline for Colorectal Cancer Screening: https://www.cancer.org/cancer/rtcbb-jzbmlm-eltbxc/jtbheoweu-xzqdqtyqy-fjogsgl/ac s-rec ommendations.html.; [place] CABRERA, Nisha WANG, Adele CALIX, Colorectal Cancer Screening: Recommendations for Physicians and Patients from the U.S. Multi-Society Task Force on Colorectal Cancer Screening , Am J Gastroenterology 2017; 112:8619-7647. TEST DESCRIPTION: Composite algorithmic analysis of stool DNA-biomarkers with hemoglobin immunoassay. Quantitative values of individual biomarkers are not reportable and are not associated with individual biomarker result reference ranges. Cologuard is intended for colorectal cancer screening of adults of either sex, 45 years or older, who are at average-risk for colorectal cancer (CRC). Cologuard has been approved for use by the U.S. FDA. The performance of Cologuard was established in a cross sectional study of average-risk adults aged 50-84. Cologuard performance in patients ages 45 to 49 years was estimated by sub-group analysis of near-age groups. Colonoscopies performed for a positive result may find as the most clinically significant lesion: colorectal cancer [4.0%], advanced adenoma (including sessile serrated polyps greater than or equal to 1cm diameter) [20%] or non- advanced adenoma [31%]; or no colorectal neoplasia [45%]. These estimates are derived from a prospective cross-sectional screening study of 10,000 individuals at average risk for colorectal cancer who were screened with both Cologuard and colonoscopy. (Natasha Galaviz al, N Engl J Med 2014;370(14):5064-3145.) Cologuard may produce a false negative or false positive result (no colorectal cancer or precancerous polyp present at colonoscopy follow up). A negative Cologuard test result does not guarantee the absence of CRC or advanced adenoma (pre-cancer). The current Cologuard screening interval is every 3 years. ([place] [employer] and U.S. Multi-Society Task Force). Cologuard performance data in a 10,000 patient pivotal study using colonoscopy as the reference method can be accessed at the following location: www.[employer]/results. Additional description of the Cologuard test process, warnings and precautions can be found at www.[employer]. Stool specimen (specimen) Specimen from rectum / Unknown 05/06/2023 7:45 AM EDT 05/07/2023 5:19 PM EDT us Lester Strauss MD BODY FLUIDS AND STOOLS ORDERABLE S Final Result [facility] (CLIA #:[id number]) [address] [place] [address], from Last 3 Months or Most Recently Relevant to Health Maintenance Insurance Care Teams Supervisor Laundry Relationship Specialty Start Date End Date Lester Strauss MD [address] [place] [address] [place] [address] PCP - General Internal Medicine 04/08/23
--- OUTSIDE RECORDS SUMMARY | 2025-03-15 09:07 | XMS_ITS | Encounter Summary ---
Author Organization [facility] Address [address] [place] [address] Care Team Providers Care Immunohematologist Name Role Phone Lester Strauss MD Primary Care Provider [phone] Reason for Visit * Reason Comments Med Refill Encounter Details Date Type Department Care Team (Late st Contact Info) Description 02/28/2025 Refill [facility] [address] [place] [address] [place] [phone] Lester Strauss MD [address] [place] [address] [place] [address] Seasonal allergic rhinitis due to pollen Social History Tobacco Use Types Packs/Day Years [...] Description 07/23/2025 8:30 AM EST Office Visit [facility] [address] [place] [address] [place] [phone] Lester Strauss MD [address] [place] [address] [place] [address] documented as of this encounter Visit Diagnoses Diagnosis Seasonal allergic rhinitis due to pollen documented in this encounter Care Teams Immunohematologist Relationship Specialty Start Date End Date Lester Strauss MD [address] [place] [address] PCP - General Internal Medicine 04/08/23 documented as of this encounter
== END 2025-03-13 23:59 | disposition home or self-care (01) ==
LOC: LAB.DROPOF 03-15 09:00
PROVIDERS: PCP Pediatrics; Visit Provider Nurse Practitioner Family
DX: N39.0 Urinary tract infection, site not specified (principal)
CPT/HCPCS: 87086; 87088; 87186